=== PATIENT | female | born 1975 | race Caucasian/White ===

== ENCOUNTER → 2016-11-26 | Outpatient (CLI) | payer BC ==
--- NOTE | 2016-11-26 17:27 | US ---
EXAMINATION TYPE: US OB >= 14 wk fetus DATE OF EXAM: 11/26/2016 COMPARISON: None CLINICAL HISTORY: O36.62X0 Large for Dates 2nd TrimesterLGA, 1 TECHNIQUE: Transabdominal (TA) GESTATIONAL AGE / DATING Physician Established: (19 weeks/2 days) EDC: 04/20/2017 Dates by LMP: (19 weeks/2 days) EDC: 04/20/2017 Dates by First Scan: No previous Dates by Current Scan: (16 weeks/5 days) EDC: 05/08/2017 SURVEY IUP: Single PLACENTA: Posterior PREVIA: No Previa KEIKO: 11.6 cm Normal CERVICAL LENGTH (transabdominal: norm > 3.0cm): 3.7 cm BIOMETRY PRESENTATION: Breech LIE: Transverse with head maternal Right BPD: 3.6 cm 17 weeks / 0 days HC: 12.7 cm 16 weeks / 3 days AC: 10.9 cm 16 weeks / 5 days FL: 2.2 cm 16 weeks / 3 days ESTIMATED WEIGHT IN GRAMS: 162.9 grams ESTIMATED WEIGHT IN LBS/OZS: 0 lbs. 6 oz. WEIGHT PERCENTAGE BASED ON ESTABLISHED DATES: <3% HC/AC: 1.17 Normal FL/AC: 19.77 HEART RATE: 138 bpm RHYTHM: Normal MATERNAL WALL MEASUREMENT: 4.4 cm from skin to anterior uterine wall (if exam limited due to body hab itus). IMPRESSION: Viable single IUP measuring 16 weeks 5 days with a heart rate of 138bpm and an estimated delivery sterling e of 05/08/2017 which is greater than 2 weeks difference than physician established dates.
== END | disposition home or self-care (01) ==
LOC: RADUSWWP 16:23
PROVIDERS: ATTEND Obstetrics & Gynecology
DX: O36.62X0 Maternal care for excessive fetal growth, second trimester, not applicable or unspecified (principal); Z3A.16 16 weeks gestation of pregnancy
CPT/HCPCS: 76805

== ENCOUNTER → 2017-09-14 | Outpatient (CLI) | payer BC | END | disposition home or self-care (01) | LOC: LABWHC1 16:03 | PROVIDERS: ATTEND Obstetrics & Gynecology | DX: Z34.80 Encounter for supervision of other normal pregnancy, unspecified trimester (principal) | CPT/HCPCS: 36415; 84702 ==